=== PATIENT | female | born 1950 | race Caucasian/White ===

== ENCOUNTER 2023-10-04 07:57 | Observation (INO) | payer MEDICARE, OTHER ==
[2023-09-28 15:32] VITALS: BMI 28.3
[2023-10-04] MEDS ORDERED: Sodium Chloride 0.9% 100 ML ONE (09:30)
[2023-10-04] MEDS ORDERED: CEFAZOLIN 2 GM VIAL ONE (09:30)
[2023-10-04 09:53] LABS: Anion Gap 10 mmol/L (10-20); BUN (Urea Nitrogen) 26 mg/dL (9.8-20.1); Calc. Creatinine Clearance 45 mL/min (70-130); Calcium 9.4 mg/dL (7.8-10.44); Carbon Dioxide 26 mmol/L (23-31); Chloride 108 mmol/L (98-107); Estimated GFR 38; Glucose 98 mg/dL (83-110); Potassium 4.3 mmol/L (3.5-5.1); Sodium 140 mmol/L (136-145)
[2023-10-04] MEDS ORDERED: PROPOFOL 20 ML ONE (10:05)
[2023-10-04] MEDS ORDERED: Fentanyl 250 MCG/5 ML VIAL ONE (10:05)
[2023-10-04] MEDS ORDERED: Rocuronium Bromide 10 MG/ML (10ML VIAL) ONE (10:06)
[2023-10-04] MEDS ORDERED: Lidocaine 1% PF 5 ML VIAL ONE (10:06)
[2023-10-04] MEDS ORDERED: Sevoflurane 250 ML INH ANEST BOTTLE ONE (10:39)
[2023-10-04] MEDS ORDERED: Ondansetron PF 4 MG/2 ML Vial ONE ×2 (10:44→13:57)
[2023-10-04] MEDS ORDERED: NEOSTIGMINE 3 MG/3 ML SYRINGE ONE (10:50)
[2023-10-04] MEDS ORDERED: GLYCOPYRROLATE/PF 0.2 MG/ML VIAL ONE ×2 (10:50)
[2023-10-04] MEDS ORDERED: Lidocaine 2% PF 5 ML VIAL ONE (11:00)
[2023-10-04] MEDS ORDERED: Vancomycin 1 GM VIAL ONE (11:21)
[2023-10-04] MEDS ORDERED: EPINEPHrine 1 MG/ML VIAL ONE (11:21)
[2023-10-04] MEDS ORDERED: Bupivacaine PF 0.5% 30 ML VIAL ONE (11:21)
[2023-10-04] MEDS ORDERED: Thrombin 5000 UNITS/5 ML VIAL ONE (11:21)
[2023-10-04] MEDS ORDERED: Dexamethasone 20 MG/5 ML VIAL ONE (12:51)
[2023-10-04] MEDS ORDERED: PHENYLEPHRINE-NS 100 MCG/ML 10 ML SYRINGE ONE (12:52)
[2023-10-04] MEDS ORDERED: Promethazine HCl 25 MG/ML VIAL IM PRN (13:53)
[2023-10-04] MEDS ORDERED: PACU-Morphine 4MG/ML VIAL SLOW IVP PRN (13:53)
[2023-10-04] MEDS ORDERED: HYDROmorphone 2 MG/ML VIAL SLOW IVP PRN (13:53)
[2023-10-04] MEDS ORDERED: Morphine Sulfate 2 MG/ML SYRINGE SLOW IVP PRN (13:53)
[2023-10-04] MEDS ORDERED: Ondansetron HCl/PF 4 MG/2 ML Vial IVP PRN (13:53)
[2023-10-04] MEDS ORDERED: SUGAMMADEX SODIUM 200 MG/2 ML VIAL ONE (13:59)
[2023-10-04] MEDS ORDERED: Bisacodyl 10 MG SUPP PR PRN (14:01)
[2023-10-04] MEDS ORDERED: Mag-Al 1200 mg/1200 mg/30 ML UDCUP PO PRN (14:01)
[2023-10-04] MEDS ORDERED: Ondansetron PF 4 MG/2 ML Vial IVP PRN (14:01)
[2023-10-04] MEDS ORDERED: diphenhydrAMINE 50 MG/ML VIAL IVP PRN (14:01)
[2023-10-04] MEDS ORDERED: HYDROcodone/Acetaminophen 7.5/325 mg Tablet PO PRN (14:01)
[2023-10-04] MEDS ORDERED: fentaNYL PF 100 MCG/2 ML SYRINGE ONE (14:45)
[2023-10-04] MEDS ORDERED: fentaNYL 50 mcg/mL 1 mL Vial ONE ×2 (16:44→17:01)
[2023-10-04] MEDS ORDERED: HYDROcodone/Acetaminophen 10/325 mg Tablet ONE (16:45)
[2023-10-04] MEDS: CEFAZOLIN 2 GM in Sodium Chloride 0.9% 100 ML IVPB SCH (18:01)
[2023-10-04] MEDS: Sodium Chloride 0.9% 1,000 ML IV SCH (18:01)
[2023-10-04] MEDS: HYDROcodone/Acetaminophen 10/325 mg Tablet PO PRN (20:33)
[2023-10-04] MEDS: tiZANidine HCl 4 MG TAB PO PRN (20:37)
[2023-10-05 04:49] LABS: #Basophils 0.04 10x3/uL (0.0-0.2); #Eosinphils Less than 0.03 10x3/uL (0.0-0.7); %Basophils 0.4 % (0.0-1.0); %Lymphocytes 11.2 % (21.0-51.0); %Monocytes 5.8 % (0.0-10.0); %Neutrophils 82.3 % (42.0-75.0); Hematocrit 34.1 % (36.0-47.0); Hemoglobin 10.9 g/dL (12.0-16.0); Mean Corpuscular Hemoglobin 30.4 pg (27.0-31.0); Mean Platelet Volume 10.3 fL (7.4-10.4); Platelet Count 280 10x3/uL (130-400); RBC Distribution Width 12.5 % (11.5-14.5); Red Blood Cell (RBC) Count 3.59 mill/uL (4.20-5.40)
[2023-10-05 05:08] LABS: Anion Gap 11 mmol/L (10-20); BUN (Urea Nitrogen) 21 mg/dL (9.8-20.1); Calc. Creatinine Clearance 51 mL/min (70-130); Calcium 8.6 mg/dL (7.8-10.44); Carbon Dioxide 25 mmol/L (23-31); Chloride 106 mmol/L (98-107); Estimated GFR 44; Glucose 151 mg/dL (83-110); Potassium 4.8 mmol/L (3.5-5.1); Sodium 137 mmol/L (136-145)
[2023-10-05] MEDS ORDERED: Benzocaine/Menthol 1 LOZ LOZ PO PRN (06:30)
[2023-10-05] MEDS: Acetaminophen/Codeine 30-300mg Tablet PO PRN (08:56)
[2023-10-05] MEDS: Pantoprazole DR 40 MG TAB PO SCH (08:57)
[2023-10-05 13:57] VITALS: BP 117/70; TEMP 98.4
== END 2023-10-05 17:55 | disposition home or self-care (01) ==
LOC: SDC 07:57 → MSONC 14:01
PROVIDERS: ADMIT Neurological Surgery; ATTEND Neurological Surgery
PROC: 01NB0ZZ Release Lumbar Nerve, Open Approach (ICD-10-PCS; principal; 2023-10-04)
DX: M51.16 Intervertebral disc disorders with radiculopathy, lumbar region (principal); I71.40 Abdominal aortic aneurysm, without rupture, unspecified; K21.9 Gastro-esophageal reflux disease without esophagitis; E78.5 Hyperlipidemia, unspecified; Z90.49 Acquired absence of other specified parts of digestive tract; Z90.710 Acquired absence of both cervix and uterus; Z98.51 Tubal ligation status; Z87.891 Personal history of nicotine dependence; Z79.84 Long term (current) use of oral hypoglycemic drugs; Z79.899 Other long term (current) drug therapy
CPT/HCPCS: 63047; 80048 ×2; 85025; C1889; J0171; J0665; J1100; J2001; J2405; J2704; J3010 ×2; J3370; J3490 ×3; J7050 ×2